=== PATIENT | female | born 1975 | race Caucasian/White ===

== ENCOUNTER 2017-08-13 16:20 | Emergency (ER) | payer OTHER ==
[~2017-08-13] VITALS: Ht 157.5 cm; Wt 49.0 kg
[2017-08-13 16:37] VITALS: Ht 157.5 cm; Wt 49.0 kg
[2017-08-13 18:30] LABS: BASOPHIL % 0.2 % (0-2); PLATELET COUNT 361 x10^3mcL (130-400)
[2017-08-13 18:35] LABS: UA SPECIFIC GRAVITY >=1.030 (1.005-1.035); microscopic required? YES; urine erythrocyte 1+ (NEGATIVE)
[2017-08-13 18:38] LABS: RED CELL DISTRIBUTION WIDTH 17.3 % (11.5-14.5)
[2017-08-13 18:39] LABS: CARBON DIOXIDE 28.1 mmol/L (21-32); CHLORIDE SERUM 104 mmol/L (98-107); CREATININE SERUM 0.7 mg/dL (0.6-1.0); GFR1 > 60 mL/min; GLUCOSE SERUM 104 mg/dL (74-106); POTASSIUM SERUM 3.5 mmol/L (3.5-5.1); SODIUM SERUM 141 mmol/L (136-145)
[2017-08-13 18:51] LABS: ALBUMIN 3.5 g/dL (3.4-5.0); ALKALINE PHOSPHATASE 83 U/L (46-116); ALT/SGPT 21 U/L (14-59); AST/SGOT 20 U/L (15-37); BILIRUBIN TOTAL 0.25 mg/dL (0.20-1.00); LIPASE 75 IU/L (73-393); TOTAL PROTEIN, SERUM 7.3 g/dL (6.4-8.2)
[2017-08-13 18:53] LABS: AMYLASE 18 U/L (25-115)
[2017-08-13 19:54] LABS: AMPHETAMINE QUAL UR POSITIVE (NEG <=1000)
[2017-08-13 22:50] VITALS: BP 141/81
== END 2017-08-13 22:55 | disposition home or self-care (01) ==
LOC: ED 16:20
PROVIDERS: Emergency Medicine
DX: R10.2 Pelvic and perineal pain (principal); F17.200 Nicotine dependence, unspecified, uncomplicated
CPT/HCPCS: J1885; J7030

== ENCOUNTER 2019-01-13 16:20 | Inpatient (IN) | payer OTHER ==
[~2019-01-13] VITALS: Ht 157.5 cm; Wt 57.6 kg
[2019-01-13 16:24] VITALS: Ht 157.5 cm; Wt 57.6 kg
--- NOTE | 2019-01-13 16:34 | NUR ---
PT SENT TO ED FOR EVAL OF LOW HEMAGLOBIN AND POSSIBLE TRANSFUSION. PT HAD GONE TO SEE HER PMD DUE TO SYNCOPE. PT STATES SHE HAS A HX OF ANEMIA WITH HEAVY PERIODS. ON HER 3RD DAY INTO HER PERIOD SHE HAD SYNCOPAL EPIDSODE. PERIOD LASTED APPORX 8 DAYS. BLOOD WAS DRAWN BY PMD AND PT WAS DIRECTED TO ED FOR EVAL AND POSSIBLE BLOOD TRANSFUSION. PT IS AWAKE AND ALERT. BREATHING EVEN UNLABORED. NO DISTRESS. STATES SOB WITH EXERTION AND GENERALIZED WEAKNESS. PT TO OTRHO ROOM WAITING MSE.
[2019-01-13 17:29] LABS: PLATELET COUNT 318 x10^3mcL (130-400)
[2019-01-13 17:33] LABS: CALCIUM 8.9 mg/dL (8.5-10.1); CARBON DIOXIDE 32.7 mmol/L (21-32); CHLORIDE SERUM 104 mmol/L (98-107); CREATININE SERUM 0.7 mg/dL (0.6-1.0); GFR1 > 60 mL/min; GLUCOSE SERUM 79 mg/dL (74-106); POTASSIUM SERUM 3.8 mmol/L (3.5-5.1); RED CELL DISTRIBUTION WIDTH 21.2 % (11.5-14.5); SODIUM SERUM 142 mmol/L (136-145)
[2019-01-13 17:39] LABS: ALBUMIN 3.6 g/dL (3.4-5.0); ALKALINE PHOSPHATASE 96 U/L (46-116); ALT/SGPT 69 U/L (14-59); AST/SGOT 42 U/L (15-37); BILIRUBIN TOTAL 0.3 mg/dL (0.20-1.00); TOTAL PROTEIN, SERUM 7.4 g/dL (6.4-8.2)
[2019-01-13 18:02] LABS: ATYPICAL LYMPH 1 %; BAND NEUTROPHIL 1 % (0-10); BASOPHIL 0 % (0-2); MONOCYTE 9 % (0-7); SEGMENTED NEUTROPHILS 64 % (37-75)
[2019-01-13 18:03] LABS: rbc morphology (normal/abnorm) ABNORMAL (NORMAL)
[2019-01-13 18:04] LABS: PLATELET MORPHOLOGY PLATELETS NORMAL; target cell (codocyte) 2+
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
--- NOTE | 2019-01-13 18:48 | NUR ---
REPORT GIVEN TO DESTINI WE ARE AWAITING FOR ADMIT ORDERS
--- NOTE | 2019-01-13 19:20 | NUR ---
SHAYY HAD TAKEN ORDERS EARLIER FROM DR CHAO ADMIT ORDERS FOR ASYMPTOMATIC ANEMIA, TELE ADMIT, REGULAR DIET TRAY. HOWEVER DINNER TRAY LINE IS CLOSED I GAVE HER THE SANDWICH.
--- NOTE | 2019-01-13 19:50 | NUR ---
INFORMED BLOOD IS READY FROM LAB.
--- NOTE | 2019-01-13 19:55 | NUR ---
CALLED UPSTAIRS AND WAS ASKED TO ANIMAL GENETICIST THE BLOOD AND START BLOOD BEFORE TAKING PT UPSTAIRS TO ROOM 228B
--- NOTE | 2019-01-13 20:10 | NUR ---
BLOOD ADMINISTRATION BEGINS. MYSELF AND ALICIA GRADY DID THE CHECKS AND WILL REDO VITAL SIGNS IN 15 MIN
--- NOTE | 2019-01-13 20:32 | NUR ---
PT USING CELL PHONE AND RESTING IN ED RMCDAVID. PT DENIES ANY PAIN AND DOES NOT SHOW ANY S/S OF ADVERSE REACTION TO BLOOD.
--- NOTE | 2019-01-13 20:42 | NUR ---
PT TAKEN UPSTAIRS BY GLORIA GRADY AND ELLYN JONES WITH BLOOD STILL TRANSFUSING. PT IS A/O X4. PT RESPS ARE E/U. NO ACD NOTED
--- NOTE | 2019-01-13 20:45 | NUR ---
RECEIVED PT VIA [facility] FROM E/D, ACCOMPANIED BY RN AND TRANSPORTER. PT A/A/O X 4, CALM, COOPERATIVE; C/O CONSTANT DULL H/A 2/10. GENERALIZED WEAKNESS, BUT ABLE TO AMBULATE W/ SLOW, STEADY GAIT FROM GUERNEY TO BED. ON TELE # 21, HR 78, DENIES CHEST PAIN OR DISCOMFORT AT THIS TIME. LUNGS CTAB, CHEST RISING EVENLY, R/A, 99%, SOB UPON EXERTION, NO ACUTE RESPIRATORY DISTRESS NOTED. IV SITE RAC 18G, CDI. ORIENTED PT TO ROOM, BED CONTROLS, CALL LIGHT SYSTEM. SIDE RAILS UP X 2, BED IN LOW POSITION. WILL ENDORSE TO [facility] ROBERSON.
[2019-01-13 21:49] VITALS: BP 150/86
[2019-01-13 22:30] VITALS: BP 141/73
--- NOTE | 2019-01-13 22:30 | NUR ---
First Unit PRBC completed. No adverse reaction noted. Clarified with Dr. Avelino Che re: blood tranfusion. Pt.needs 2 units PRBC total. Will transfuse another unit of blood.
[2019-01-14] VITALS: BP 142/79
--- NOTE | 2019-01-14 00:06 | NUR ---
Second unit of PRBC started and no untoward reaction noted. Will cont.to monitor.
[2019-01-14 03:15] VITALS: BP 162/75
--- NOTE | 2019-01-14 03:21 | NUR ---
Blood transfusion completed. No adverse reaction noted.
--- NOTE | 2019-01-14 04:04 | NUR ---
Resting at this time. No SOB noted. Denies pain. In no apparent distress.
[2019-01-14 05:49] VITALS: BP 136/74
[2019-01-14 06:30] LABS: CALCIUM 8.8 mg/dL (8.5-10.1); CARBON DIOXIDE 27.5 mmol/L (21-32); CHLORIDE SERUM 107 mmol/L (98-107); CREATININE SERUM 0.7 mg/dL (0.6-1.0); GFR1 > 60 mL/min; GLUCOSE SERUM 88 mg/dL (74-106); SODIUM SERUM 142 mmol/L (136-145)
[2019-01-14 06:34] LABS: PLATELET COUNT 278 x10^3mcL (130-400)
[2019-01-14 06:47] LABS: IRON 19 ug/dL (50-170); TOTAL IRON BINDING CAPACITY 475 ug/dL (250-450)
[2019-01-14 07:08] LABS: RED CELL DISTRIBUTION WIDTH 29.8 % (11.5-14.5)
--- NOTE | 2019-01-14 07:40 | NUR ---
RECEIVED PT FROM [facility] [employer]. PREMA. TELE#21. DENIES CHEST PAIN/PRESSURE. RESPIRATIONS EQUAL AND UNLABORED ON RA. DENIES SOB. IV SALINE LOCKED. NO REDNESS OR SWELLING NOTED. PT DENIES ANY PAIN AT THIS TIME. PT STATES SHE FEELS TIRED AND JUST WANTS TO REST. WILL CONTINUE TO MONITOR. CALL LIGHT IN REACH. BED IN LOWEST POSITION.
[2019-01-14 07:50] VITALS: BP 132/71
--- NOTE | 2019-01-14 09:30 | NUR ---
PT SITTING UP IN BED. NO ACUTE RESP DISTRESS NOTED ON RA. PT DENIES ANY PAIN AT THIS TIME. PT DENIES ANY DIZZINESS OR SYNCOPE. IV SALINE LOCKED TO RAC. NO REDNESS OR SWELLING NOTED. PT STATES DR. LEMONS TOLD HER SHE WILL BE DISCHARGED TODAY. PT STATES SHE WILL HAVE SOMEONE PICK HER UP ONCE DISCHARGE PAPERWORK IS READY. WILL CONTINUE TO MONITOR. CALL LIGHT IN REACH. BED IN LOWEST POSITION.
[2019-01-14 09:56] VITALS: BP 132/71
--- NOTE | 2019-01-14 10:40 | NUR ---
SPOKE WITH TIO IN [employer] [facility], PER TIO SHE WILL WORK ON FOLLOW UP APPOINTMENT WITH [facility] AND WILL CALL ONCE APPT IS SET UP.
[2019-01-14 12:42] VITALS: BP 136/66
--- NOTE | 2019-01-14 14:50 | NUR ---
PT SITTING UP IN BED. GIVEN DISCHARGE INSTRUCTIONS. PT ENCOURAGED TO COME BACK TO ER OR FOLLOW UP WITH PCP IF ANY WORSENING SYMPTOMS OF TEMPERATURE, SOB, DIZZINESS OR FAINTING. PT INFORMED OF FOLLOW UP APPOINTMENT WITH PCP DR. RAI ON 01/19. PT INSTRUCTED TO GET REFERRAL FROM DR. RAI AND TAKE IT TO GYNCOLOGIST APPT ON 01/22. PT VERBALIZED UNDERSTANDING. GIVEN PRESCRIPTION FOR FERROUS SULFATE. PT ENCOURAGED TO TAKE WITH ORANGE JUICE AND INFORMED OF SIDE EFFECTS OF MEDICATION. ALL QUESTIONS AND CONCERNS ADDRESSED. NO PROBLEMS ENCOUNTERED. IV TO LAC REMOVED CATHETER INTACT. NO REDNESS OR SWELLING NOTED. TELE#21 [facility]URN[facility] TO [facility]. PT TAKEN OFF FLOOR BY VAMSHI.
== END 2019-01-14 15:01 | disposition home or self-care (01) | DRG 663 ==
LOC: ED 16:20 → DU 18:19
PROVIDERS: Emergency Medicine; ADMIT Internal Medicine Pulmonary Disease
PROC: 30233N1 Transfusion of Nonautologous Red Blood Cells into Peripheral Vein, Percutaneous Approach (ICD-10-PCS; principal; 2019-01-13)
DX: D50.9 Iron deficiency anemia, unspecified (principal); F17.210 Nicotine dependence, cigarettes, uncomplicated; N92.0 Excessive and frequent menstruation with regular cycle; Z98.51 Tubal ligation status
CPT/HCPCS: 99406; G0378; J1200; J7040; P9016; Q0092